=== PATIENT | male | born 1960 | race Caucasian/White ===

== ENCOUNTER 2021-04-15 15:12 | Emergency (ER) | payer SELFPAY ==
[~2021-04-15] VITALS: Ht 177.8 cm; Wt 85.1 kg
--- NOTE | 2021-04-15 15:15 | NUR ---
pt BIB [facility] from a motel where he was staying that he refused to leave. per report, there were numerous empty alcohol containers all over the room and pt admits to drinking. per report, motel staff had told patient that he needed to leave and he would not get out of the bed, so they called [facility] who called EMS for transport pt has a decreased LOC and is not answering questions or following commands. pt was able to roll himself from EMS [facility] to ER [facility]. pt has no obvious injures, but has mulitple abrasions at various stages of healing to face arms and hands no family at bedside. EKG has been to bedside
--- NOTE | 2021-04-15 15:49 | NUR ---
task RN: Dr. Benz has been to bedside for eval report to Bharati ZAMUDIO
[2021-04-15] MEDS ORDERED: SODIUM CHLORIDE 0.9% 1,000ML IVBOLUS ONE (16:00)
[2021-04-15 16:06] LABS: BASOPHILS % (AUTO) 1 % (0-1); EOSINOPHILS % (AUTO) 0 % (1-7); LYMPHOCYTES % (AUTO) 20 % (22-44); MEAN CORPUSCULAR HEMOGLOBIN 33.3 pg (27.5-34.5); MEAN CORPUSCULAR HGB CONC 34.3 g/dL (33.2-36.2); MEAN PLATELET VOLUME 6.8 fL (7.4-10.4); MONOCYTES % (AUTO) 7 % (2-9); NEUTROPHILS % (AUTO) 73 % (42-75); PLATELET COUNT 333 x10^3/uL (130-400); RED BLOOD COUNT 4.33 x10^6/uL (4.38-5.82); RED CELL DISTRIBUTION WIDTH 17.2 % (9.4-14.8)
[2021-04-15 16:11] LABS: ALANINE AMINOTRANSFERASE 58 U/L (12-78); ALBUMIN 3.3 g/dL (3.4-5.0); ANION GAP 15 mmol/L (5-15); CHLORIDE 103 mmol/L (98-107); CREATININE 0.81 mg/dL (0.7-1.3)
[2021-04-15 16:16] LABS: ALKALINE PHOSPHATASE 154 U/L (45-117); BILIRUBIN,TOTAL 0.4 mg/dL (0.2-1.0); TOTAL PROTEIN 7.7 g/dL (6.4-8.2)
--- NOTE | 2021-04-15 16:40 | NUR ---
PER DR. RAF CLARK TO NOT COLLECT UDS D/T PT BEING UNABLE TO URINATE.
--- NOTE | 2021-04-15 17:49 | NUR ---
PT RESTING IN [place], EYES CLOSED, MONITORING IN PLACE, NADN AT THIS TIME, WCTM.
--- NOTE | 2021-04-15 18:20 | NUR ---
MEAL TRAY PROVIDED TO PT.
--- NOTE | 2021-04-15 18:20 | NUR ---
TASK RN: PT REQUESTING URINAL. PT UNABLE TO STAND W/O ASSISTANCE. AFTER POSITIONING URINAL PT STATES CAN NOT URINATE. PT ASSISTED BACK TO [place]. PT STATES "I HAVE A BLOOD CLOT IN MY RIGHT LUNG, I TAKE MEDS BUT THEYRE IN MY CAR IN [place]". PRIMARY RN UPDATED.
--- NOTE | 2021-04-15 18:25 | NUR ---
EDMD AWARE OF PT'S STATEMENTS REGARDING BLOOD CLOT IN LUNG. NEW ORDER FOR CTA.
--- NOTE | 2021-04-15 18:45 | NUR ---
PT REMOVED O2, 82% RA. O2 REPLACED. 92% 3L NC.
[2021-04-15] MEDS ORDERED: OMNIPAQUE 350 MG/ML, 100ML BOTTLE ONE (19:01)
[2021-04-15] MEDS ORDERED: FUROSEMIDE 40 MG/4 ML IV ONE (19:30)
[2021-04-15] MEDS ORDERED: FUROSEMIDE 40 MG/4 ML ONE (19:59)
[2021-04-15 20:20] LABS: TROPONIN I < 0.015 ng/mL (0.000-0.045)
--- NOTE | 2021-04-15 21:02 | NUR ---
REPORT TO ROBB ESPAÑA.
--- NOTE | 2021-04-15 21:10 | NUR ---
RECIEVED REPORT FROM BEBETO ZAMUDIO. PATIENT UP IN ROOM REQUESTING ATIVAN SAYING "I'M DETOXING". PATIENT SLURRING WORDS. PATIENT AMBULATORY WITH A STEADY GAIT.
[2021-04-15 21:20] VITALS: BP 191/96
--- NOTE | 2021-04-15 21:21 | NUR ---
PATIENT O2 SAT 92% ON ROOM AIR
--- NOTE | 2021-04-15 21:36 | NUR ---
PATIENT AMBULATED TO BATHROOM WITH A STEADY GAIT.
--- NOTE | 2021-04-15 21:53 | NUR ---
Patient given discharge instructions and they have confirmed that they understand the instructions. Patient ambulatory with steady gait. NAD, all questions answered appropriately, denies additional needs at this time. No personal belongings left in room after discharge.
== END 2021-04-15 21:59 | disposition home or self-care (01) ==
LOC: ED 15:30
DX: F10.220 Alcohol dependence with intoxication, uncomplicated (principal); R05 Cough; R06.02 Shortness of breath; R41.82 Altered mental status, unspecified; R00.1 Bradycardia, unspecified; Y90.0 Blood alcohol level of less than 20 mg/100 ml
CPT/HCPCS: 36415; 71045; 71275; 80053; 80320; 82140; 83880; 84484; 85025; 93005; 96361; 96374; 99285; J1940; J7030; Q9967; G0480

== ENCOUNTER 2021-04-16 00:02 | Emergency (ER) | payer SELFPAY ==
[~2021-04-16] VITALS: Ht 175.3 cm; Wt 83.9 kg
--- NOTE | 2021-04-16 04:30 | NUR ---
METER REPAIRER: PT. TO ROOM FROM LOBBY AT THIS TIME.
--- NOTE | 2021-04-16 04:43 | NUR ---
Introduced self to pt. Pt alert and oriented x4, GCS 15, endorsing DT's. States he drinks daily, last drink yesterday. Is having bad shakes, anxiety, and keeps stating that he needs Ativan. Pt placed on cardiac/pulse ox monitor. Call tucker and personal items within reach.
[2021-04-16] MEDS ORDERED: LORazepam 2 MG/ML, 1ML ONE ×2 (05:24→05:41)
[2021-04-16] MEDS ORDERED: SODIUM CHLORIDE 0.9% 1,000ML IVBOLUS ONE (05:30)
[2021-04-16] MEDS ORDERED: SODIUM CHLORIDE FLUSH 10ML SYR IVF ONE (05:30)
[2021-04-16] MEDS ORDERED: THIAMINE 100 MG in SODIUM CHLORIDE 0.9% 50 ML IVPB ONE (05:30)
[2021-04-16 05:44] LABS: BASOPHILS % (AUTO) 1 % (0-1); EOSINOPHILS % (AUTO) 0 % (1-7); LYMPHOCYTES % (AUTO) 11 % (22-44); MEAN CORPUSCULAR HEMOGLOBIN 33.3 pg (27.5-34.5); MEAN CORPUSCULAR HGB CONC 34.5 g/dL (33.2-36.2); MEAN PLATELET VOLUME 6.8 fL (7.4-10.4); MONOCYTES % (AUTO) 8 % (2-9); NEUTROPHILS % (AUTO) 80 % (42-75); PLATELET COUNT 258 x10^3/uL (130-400); RED BLOOD COUNT 4.08 x10^6/uL (4.38-5.82); RED CELL DISTRIBUTION WIDTH 17.4 % (9.4-14.8)
[2021-04-16] MEDS: LORazepam 2 MG/ML, 1ML IVPush PRN ×2 (05:45→05:56)
[2021-04-16 05:50] LABS: ANION GAP 14 mmol/L (5-15); CALCIUM 8.2 mg/dL (8.5-10.1); CHLORIDE 96 mmol/L (98-107); CREATININE 0.85 mg/dL (0.7-1.3)
[2021-04-16 05:51] LABS: ALANINE AMINOTRANSFERASE 53 U/L (12-78); ALBUMIN 3.7 g/dL (3.4-5.0)
[2021-04-16 05:53] LABS: ALKALINE PHOSPHATASE 149 U/L (45-117); BILIRUBIN,TOTAL 0.8 mg/dL (0.2-1.0); TOTAL PROTEIN 7.9 g/dL (6.4-8.2)
[2021-04-16] MEDS ORDERED: KETOROLAC 30 MG/1 ML ONE (06:12)
[2021-04-16] MEDS ORDERED: LORazepam 1MG TABLET ONE (06:13)
[2021-04-16] MEDS ORDERED: CHLORDIAZEPOXIDE 25 MG CAPSULE PO PRN (06:30)
[2021-04-16] MEDS ORDERED: LORazepam 1MG TABLET PO ONE (06:30)
[2021-04-16] MEDS ORDERED: KETOROLAC 30 MG/1 ML IVPush ONE (06:30)
[2021-04-16 06:35] VITALS: BP 161/75
--- NOTE | 2021-04-16 06:36 | NUR ---
PIV removed, last set of vitalsupdated. I called pts brother Raphael x4 times. Finally got ahold of him. Raphael is driving from [place] to pick pt up. States he will not be here until 9am. Taryn guide [facility] aware. Stated pt can be discharged to lobby. Pt has slightly unsteady gait, however able to move around freely. pt wheeled out to lobby with discharge paperwork.Aware that brother will be picking pt up at 9am. Pt also has brothers phone number memorized.
== END 2021-04-16 06:38 | disposition home or self-care (01) ==
LOC: ED 05:51
DX: S20.211A Contusion of right front wall of thorax, initial encounter (principal); F10.139 Alcohol abuse with withdrawal, unspecified; Y90.0 Blood alcohol level of less than 20 mg/100 ml; W01.0XXA Fall on same level from slipping, tripping and stumbling without subsequent striking against object, initial encounter; Y93.89 Activity, other specified; Y92.410 Unspecified street and highway as the place of occurrence of the external cause; Y99.8 Other external cause status
CPT/HCPCS: 36415; 71101; 80053; 85025; 96374; 96375; 99284; J1885; J2060; J3411; J7030